=== PATIENT | female | born 1960 | race Caucasian/White ===

== ENCOUNTER 2017-04-22 13:19 | Emergency (ER) | payer OTHER ==
[2017-04-22 13:29] VITALS: BP 136/75; PULSE 71; TEMP 98; BMI 24.9
--- NOTE | 2017-04-22 14:27 | PDOC ---
History of Present Illness - General Chief Complaint: Injury Stated Complaint: PCP SENT Time Seen by Provider: 04/22/17 13:34 - History of Present Illness Initial Comments: 04/22/17 14:19 CHIEF COMPLAINT: ankle pain HISTORY OF PRESENT ILLNESS: 56 yo F sent to fast track by PCP for right ankle pain. Patient reports that she slipped and fell on a wet surface yesterday and with inversion of her ankle. No recent travel or sick contacts. PAST MEDICAL HISTORY: Denies past medical history FAMILY HISTORY: Denies SOCIAL HISTORY:Denies tobacco, alcohol, illicit drug use. SURGICAL HISTORY: Denies ALLERGIES: No known drug allergies REVIEW OF SYSTEMS General/Constitutional: Denies fever or chills. Denies weakness, weight change. HEENT: Denies change in vision. Denies ear pain or discharge. Denies sore throat. Cardiovascular: Denies chest pain or shortness of breath. Respiratory: Denies cough, wheezing, or hemoptysis. Gastrointestinal: Denies nausea, vomiting, diarrhea or constipation. Denies rectal bleeding. Genitourinary: Denies dysuria, frequency, or change in urination. Musculoskeletal: Pain to R ankle. Denies joint or muscle swelling or pain. Denies neck or back pain. Skin and breasts: Denies rash or easy bruising. Neurologic: Denies headache, vertigo, loss of consciousness, or loss of sensation. PHYSICAL EXAM General Appearance: Well-appearing, appropriately dressed. No apparent distress , no intoxication. HEENT: EOMI, PERRLA, normal ENT inspection, normal voice, TMs normal, pharynx normal. No conjunctival pallor. No photophobia, scleral icterus. Neck: Supple. Trachea midline. No tenderness, rigidity, carotid bruit, stridor , lymphadenopathy, or thyromegaly. Respiratory/Chest: Lungs CTAB. No shortness of breath, chest tenderness, respiratory distress, accessory muscle use. No crackles, rales, rhonchi, stridor , wheezing, dullness Cardiovascular: RRR. S1, S2. No JVD, murmur, bradycardia, tachycardia. Vascular Pulses: Dorsalis-Pedis (R): 2+, Dorsalis-Pedis (L): 2+ Gastrointestinal/Abdominal: Normal bowel sounds. Abdomen soft, non-distended. No tenderness or rebound tenderness. No organomegaly, pulsatile mass, guarding , hernia, hepatomegaly, splenomegaly. Lymphatic: No adenopathy, tenderness. Musculoskeletal/Extremities: Swelling and ecchymosis to R lateral malleolus. Normal inspection. FROM of all extremities, normal capillary refill. Pelvis Stable. No CVA tenderness. No tenderness to extremities, pedal edema, swelling , erythema or deformity. Integumentary: Appropriate color, dry, warm. 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 Fully oriented, alert. Appropriate mood/affect. Motor strength 5/5. No appreciable EOM palsy, facial droop or sensory deficit. Past History - Past Medical History Allergies/Adverse Reactions: Allergies Allergy/AdvReac Type Severity Reaction Status Date / Time No Known Allergies Allergy Verified 04/22/17 13:26 Home Medications: Ambulatory Orders Naproxen [Naprosyn -] 250 mg PO BID #14 tablet 04/22/17 Oxycodone HCl/Acetaminophen [Percocet 5-325 mg Tablet] 1 tab PO Q6H PRN #16 tablet MDD 4 04/22/17 Seizures: Yes (EPILEPSY) - Psycho/Social/Smoking Cessation Hx Suicidal Ideation: No Smoking History: Former smoker Have you smoked in the past 12 months: No Number of Cigarettes Smoked Daily: 1 Information on smoking cessation initiated: No *Physical Exam - Vital Signs Last Vital Signs Temp Pulse Resp BP Pulse Ox 98 F 71 17 136/75 95 04/22/17 13:26 04/22/17 13:26 04/22/17 13:26 04/22/17 13:26 04/22/17 13:26 ED Treatment Course - RADIOLOGY Radiology Studies Ordered: Category Date Time Status ANKLE & FOOT-RIGHT* [RAD] Stat Radiology 04/22/17 13:56 Taken Medical Decision Making - Medical Decision Making 04/22/17 14:27 56 yo F sent to fast track by PCP for right ankle pain. Patient reports receiving "a pain medicine injection" at PCP's office. -R ankle x-ray 04/22/17 14:39 X-ray positive for fracture of distal fibula. -Posterior splint applied. -Percocet *DC/Admit/Observation/Transfer Diagnosis at time of Disposition: Ankle fracture Qualifiers: Encounter type: initial encounter Fracture type: closed Laterality: right Qualified Code(s): S82.891A - Other fracture of right lower leg, initial encounter for closed fracture - Discharge Dispostion Disposition: HOME Condition at time of disposition: Stable Admit: No - Prescriptions Prescriptions: Naproxen [Naprosyn -] 250 mg PO BID #14 tablet Oxycodone HCl/Acetaminophen [Percocet 5-325 mg Tablet] 1 tab PO Q6H PRN #16 tablet MDD 4 PRN Reason: Pain - Referrals Referrals: Eloy Cantrell MD [Staff Physician] - - Patient Instructions Printed Discharge Instructions: DI for Ankle Fracture Additional Instructions: Please take medications as prescribed. Do not drive or operate machinery while taking this medication. Follow up with orthopedics within the next 2-3 days as discussed. If you experience any numbness, tingling, loss of sensation, swelling , or decreased temperature to your foot, please return to the ER immediately. Por favor, kye los medicamentos segn lo prescrito. No maneje mientras tomando Percocet. Seguimiento con ortopedia dentro de los prximos 2-3 saba jessica se discutio. Si experimenta cualquier entumecimiento, hormigueo, prdida de sensibilidad, hinchazn o disminucin de la temperatura en duenas pie, por favor regrese inmediatamente a la maykel de emergencias. Print Language: HEBREW
== END 2017-04-22 15:02 | disposition home or self-care (01) ==
LOC: JERFT 13:19
PROC: 2W3LX1Z Immobilization of Right Lower Extremity using Splint (ICD-10-PCS; principal; 2017-04-22)
DX: S82.891A Other fracture of right lower leg, initial encounter for closed fracture (principal); W01.0XXA Fall on same level from slipping, tripping and stumbling without subsequent striking against object, initial encounter; Y93.89 Activity, other specified; Y92.89 Other specified places as the place of occurrence of the external cause; Z86.69 Personal history of other diseases of the nervous system and sense organs
CPT/HCPCS: 29515; 73610-TC-RT; 73630-TC-RT; 99281-25

== ENCOUNTER 2019-05-27 21:23 | Emergency (ER) | payer OTHER ==
[2019-05-27 21:42] VITALS: TEMP 97.7; BMI 24.0
--- NOTE | 2019-05-27 22:17 | PDOC ---
History of Present Illness - General Chief Complaint: HIV Testing Stated Complaint: STD TESTING Time Seen by Provider: 05/27/19 21:55 History Source: Patient - History of Present Illness Associated Symptoms: denies: fever/chills Past History - Past Medical History Allergies/Adverse Reactions: Allergies Allergy/AdvReac Type Severity Reaction Status Date / Time No Known Allergies Allergy Verified 05/27/19 21:37 Home Medications: Ambulatory Orders Naproxen [Naprosyn -] 250 mg PO BID #14 tablet 04/22/17 Hydrocodone/Acetaminophen [Sinclair 5-325 Tablet] 1 each PO Q6H PRN #16 tablet MDD 4 04/23/17 Hydrocodone/Acetaminophen [Vicodin 5-300 mg Tablet] 1 each PO Q6H PRN #16 tablet MDD 4 04/23/17 Anemia: No COPD: No Seizures: Yes (EPILEPSY) - Immunization History Immunization Up to Date: No - Suicide/Smoking/Psychosocial Hx Smoking History: Never smoked Have you smoked in the past 12 months: No Number of Cigarettes Smoked Daily: 1 Hx Alcohol Use: No Drug/Substance Use Hx: No Review of Systems - Review of Systems Constitutional: No: Chills, Fever, Malaise *Physical Exam - Vital Signs Last Vital Signs Temp Pulse Resp BP Pulse Ox 97.7 F 62 16 130/72 98 05/27/19 21:38 05/27/19 21:38 05/27/19 21:38 05/27/19 21:38 05/27/19 21:38 - Physical Exam General Appearance: Yes: Appropriately Dressed. No: Apparent Distress HEENT: positive: Normal Voice Neck: positive: Supple Respiratory/Chest: negative: Respiratory Distress Integumentary: positive: Dry, Warm Neurologic: positive: Fully Oriented, Alert, Normal Mood/Affect Medical Decision Making - Medical Decision Making 05/27/19 21:58 59 yo F, no sig hx, here with boyfriend, both req HIV test before they . States thay have not been intimate as of yet. Has never had HIV test before 05/27/19 23:47 Pt does not want to wait for results, states will return tomorrow for results *DC/Admit/Observation/Transfer Diagnosis at time of Disposition: Encounter for human immunodeficiency virus test - Discharge Dispostion Disposition: HOME Condition at time of disposition: Good - Referrals - Patient Instructions Additional Instructions: You decided to leave prior to HIV results Please return to ER tomorrow for results - Post Discharge Activity
[2019-05-28 01:33] VITALS: BP 135/76; PULSE 67
== END 2019-05-27 23:50 | disposition home or self-care (01) ==
LOC: JER 21:23
DX: Z11.4 Encounter for screening for human immunodeficiency virus [HIV] (principal)
CPT/HCPCS: 36415; 87389; 99282-25

== ENCOUNTER 2019-08-17 12:38 | Emergency (ER) | payer OTHER ==
--- NOTE | 2019-08-17 12:46 | PDOC ---
Rapid Medical Evaluation Medical Evaluation: Allergies Allergy/AdvReac Type Severity Reaction Status Date / Time No Known Allergies Allergy Verified 05/27/19 21:37 I have performed a brief in-person evaluation of this patient. The patient presents with a chief complaint of: c/o L ear pain x 2 weeks, c/o lightheadedness x 1 week; denies cp, abdominal pain, vomiting, diarrhea; hx of seizures (not on meds) Pertinent physical exam findings: In NAD, normal gait I have ordered the following: Labs, EKG The patient will proceed to the ED for further evaluation. 08/17/19 12:44
[2019-08-17 12:47] VITALS: TEMP 97.7; BMI 24.9
[2019-08-17] MEDS ORDERED: ACETAMINOPHEN 325 MG TABLET (FP) PO ONE (12:47)
[2019-08-17] MEDS ORDERED: ACETAMINOPHEN 325 MG TABLET (FP) ONE (13:51)
[2019-08-17 13:53] LABS: BASO % 0.9 % (0-2.0); EOS % 3.1 % (0-4.5); HEMATOCRIT 40.6 % (32.4-45.2); LYMPH % 30.5 % (8-40); MCH 29.3 pg (25.7-33.7); MCHC 34.4 g/dl (32.0-36.0); MEAN CELL VOLUME 85.1 fl (80-96); MEAN PLT VOLUME 7.2 fl (7.5-11.1); MONO % 10.9 % (3.8-10.2); NEUT % 54.6 % (42.8-82.8); PLATELET COUNT 285 K/MM3 (134-434); RBC 4.77 M/mm3 (3.60-5.2); RDW 13.2 % (11.6-15.6); WHITE BLOOD COUNT 7.9 K/mm3 (4.0-10.0)
--- NOTE | 2019-08-17 14:09 | PDOC ---
History of Present Illness - General Chief Complaint: Lightheaded Stated Complaint: EARACHE/DIZZINESS Time Seen by Provider: 08/17/19 12:44 - History of Present Illness Initial Comments: 08/17/19 14:23 HPI: 59 y/o M with no pmh presenting with 2-3 weeks of left ear pain and 1 week of progressive dizziness. She states she went to her PCP when the pain first started and was told she had a TM perforation but was not given any ear drops or abx meds. The pain is non radiating and feels like a sharp inner ear sensation. She states the pain is persistent and hasnt improved at all. Dizziness has been worsening over the past week. She feels unsteady when she walks but denies syncope or falls. She reports dizziness is worse when she stands up and walks and when she lays down and turns to the side. She also reports KRAMER, sore throat, rhinorrhea, and congestion. Sore throat has improved with honey and lemon concoction. Denies fever, chills, chest pain, SOB, abd pain , n/v. PMHx: as noted above ROS: as noted SHx: Denies tobacco use; no alcohol use; no rec drugs Allergies: NKDA ROS: GENERAL/CONSTITUTIONAL: No fever or chills. No weakness. HEAD, EYES, EARS, NOSE AND THROAT: No change in vision. +ear pain; no discharge. +sore throat. CARDIOVASCULAR: No chest pain or shortness of breath RESPIRATORY: No cough, wheezing, or hemoptysis. GASTROINTESTINAL: No nausea, vomiting, diarrhea or constipation. GENITOURINARY: No dysuria, frequency, or change in urination. MUSCULOSKELETAL: No joint or muscle swelling or pain. No neck or back pain. SKIN: No rash NEUROLOGIC: +headache, vertigo; no loss of consciousness, or change in strength/ sensation. ENDOCRINE: No increased thirst. No abnormal weight change HEMATOLOGIC/LYMPHATIC: No anemia, easy bleeding, or history of blood clots. ALLERGIC/IMMUNOLOGIC: No hives or skin allergy. PE: GENERAL: Awake, alert, and fully oriented, no acute distress HEAD: No signs of trauma, normocephalic, atraumatic EYES: EOMI, sclera anicteric, conjunctiva clear, mild horizontal nystagmus with lateral head rotation ENT: Auricles normal inspection, 2 small microperforations of left TM without injection or drainage, right TM intact and noninjected, hearing grossly normal, nares patent, oropharynx clear without exudates. Moist mucosa. No crepitus or ttp over TMJ. Mild left mastoid ttp but no overlying skin changes NECK: Normal ROM, no lymphadenopathy LUNGS: No increased work of breathing, symmetrical chest rise, clear to auscultation bilaterally, no wheezes, crackles or rhonchi HEART: Regular rate and rhythm, normal S1 and S2, no murmurs, peripheral pulses 2+ and equal bilaterally. ABDOMEN: Soft, nondistended, nontender, normoactive bowel sounds. No guarding, no rebound. No masses. No CVAT EXTREMITIES: Normal inspection, Normal range of motion, no edema. No clubbing or cyanosis. NEUROLOGICAL: Cranial nerves II through XII grossly intact. Normal speech, normal gait, no focal sensorimotor deficits. mild nystagmus on dixhallpike SKIN: Warm, Dry, normal turgor, no rashes or lesions noted Past History - Past Medical History Allergies/Adverse Reactions: Allergies Allergy/AdvReac Type Severity Reaction Status Date / Time No Known Allergies Allergy Verified 08/17/19 12:47 Home Medications: Ambulatory Orders Naproxen [Naprosyn -] 250 mg PO BID #14 tablet 04/22/17 Hydrocodone/Acetaminophen [[place] 5-325 Tablet] 1 each PO Q6H PRN #16 tablet MDD 4 04/23/17 Hydrocodone/Acetaminophen [Vicodin 5-300 mg Tablet] 1 each PO Q6H PRN #16 tablet MDD 4 04/23/17 Amoxicillin/Potassium Clav [Augmentin 875-125 Tablet] 1 each PO BID 7 Days #14 tablet 08/17/19 Meclizine HCl [Antivert -] 25 mg PO BID 7 Days #14 tablet 08/17/19 Anemia: No COPD: No Seizures: Yes (EPILEPSY) - Immunization History Immunization Up to Date: No - Psycho Social/Smoking Cessation Hx Smoking History: Never smoked Have you smoked in the past 12 months: No Number of Cigarettes Smoked Daily: 1 Hx Alcohol Use: No Drug/Substance Use Hx: No *Physical Exam - Vital Signs Last Vital Signs Temp Pulse Resp BP Pulse Ox 97.7 F 80 18 130/80 98 08/17/19 12:40 08/17/19 12:40 08/17/19 12:40 08/17/19 12:40 08/17/19 12:40 ED Treatment Course - LABORATORY CBC & Chemistry Diagram: 08/17/19 13:45 08/17/19 12:47 - ADDITIONAL ORDERS Additional order review: 08/17/19 13:45 RBC 4.77 MCV 85.1 MCHC 34.4 RDW 13.2 MPV 7.2 L Neutrophils % 54.6 Lymphocytes % 30.5 Monocytes % 10.9 H Eosinophils % 3.1 Basophils % 0.9 - Medications Given in the ED: ED Medications Discontinued Medications Generic Name Dose Route Start Last Admin Trade Name Arturo PRN Reason Stop Dose Admin Acetaminophen 975 mg 08/17/19 12:47 08/17/19 13:52 Tylenol - PO 08/17/19 12:48 975 mg ONCE ONE Administration Medical Decision Making - Medical Decision Making 08/17/19 15:14 59 y/o M with no pmh presenting with 2-3 weeks of left ear pain and 1 week of vertiginous symptoms. VSS, AF. PE notable for left TM perf without injection or purulence but with +nystagmus and mild left mastoid ttp. DDx include vestibular dysfunction 2/2 TM perf but will ruleout deeper infection/mastoiditis as well -labs -tylenol, meclizine, augmentin, ivf -ct head noncon and ct temporal bones with con 08/17/19 16:34 CT head and temporal bones negative will DC home with augmentin and meclizine scripts discussed with patient results and she understands information as well as return pcxns; she has no questions at this time is comfortable with DC Discharge - Discharge Information Problems reviewed: Yes Clinical Impression/Diagnosis: Tympanic membrane perforation Qualifiers: Laterality: left Qualified Code(s): H72.92 - Unspecified perforation of tympanic membrane, left ear Condition: Stable Disposition: HOME - Additional Discharge Information Prescriptions: Amoxicillin/Potassium Clav [Augmentin 875-125 Tablet] 1 each PO BID 7 Days #14 tablet Meclizine HCl [Antivert -] 25 mg PO BID 7 Days #14 tablet - Follow up/Referral Referrals: Felipa Omalley MD [Primary Care Provider] - Bear Kirkland MD [Staff Physician] - - Patient Discharge Instructions Patient Printed Discharge Instructions: DI for Tympanic Membrane Perforation- Adult Additional Instructions: Return to the ED if you are having new or worsening symptoms including fainting , inability to walk, severe headache. Please take Augmentin twice a day. You may also take meclizine twice a day as needed for dizziness You may take tylenol for pain control Please followup with Dr Jackson for ENT followup. His contact information is present in the packet Regrese al servicio de urgencias si tiene sntomas nuevos o que empeoran, incluidos desmayos, incapacidad para caminar, dolor de brown intenso. [place] Augmentin dos veces al da. Tambin puede jazmine meclizina dos veces al da segn sea necesario para mareos. Puede jazmine tylenol para controlar el dolor. Dago un seguimiento con el Dr. Jackson para el seguimiento de ENT. [place] informacin de contacto est presente en el paquete. Print Language: AUSTRALIAN - Post Discharge Activity
[2019-08-17 14:31] LABS: ALBUMIN 3.4 g/dl (3.4-5.0); ALK PHOS 121 U/L (45-117); ANION GAP 5 MMOL/L (8-16); BILIRUBIN,TOTAL 0.4 mg/dL (0.2-1); BLOOD UREA NITROGEN 12.4 mg/dL (7-18); CALCIUM 9.4 mg/dL (8.5-10.1); CHLORIDE 104 mmol/L (98-107); CO2 31 mmol/L (21-32); CREATININE 0.7 mg/dL (0.55-1.3); GLUCOSE,RANDOM 107 mg/dL (74-106); POTASSIUM 3.7 mmol/L (3.5-5.1); SGOT/AST 22 U/L (15-37); SGPT/ALT 32 U/L (13-61); SODIUM 141 mmol/L (136-145); TOT PROT 7.4 g/dl (6.4-8.2)
[2019-08-17] MEDS ORDERED: MECLIZINE HCL 25 MG TABLET (FP) PO ONE (14:34)
[2019-08-17] MEDS ORDERED: AMOX TR/POT CLAV 875MG/125MG TABLETS (FP) PO ONE (14:36)
[2019-08-17] MEDS ORDERED: SODIUM CHLORIDE 1,000 ML IV STA (14:36)
[2019-08-17] MEDS ORDERED: AMOX TR/POT CLAV 875MG/125MG TABLETS (FP) ONE (14:46)
[2019-08-17] MEDS ORDERED: MECLIZINE HCL 25 MG TABLET (FP) ONE (14:46)
[2019-08-17 14:52] LABS: PH,URINE 7.5 (5.0-8.0); URINE APPEARANCE Cloudy; URINE BILIRUBIN Negative (NEGATIVE); URINE COLOR Yellow; URINE GLUCOSE (UA) Negative (NEGATIVE); URINE KETONE Negative (NEGATIVE); URINE LEUK ESTERASE Trace (NEGATIVE); URINE NITRITE Negative (NEGATIVE); URINE PROTEIN Negative (NEGATIVE); URINE UROBILINOGEN 0.2 mg/dL (0.2-1.0)
[2019-08-17 14:57] LABS: EPI CELLS 0-5 /HPF (0-5/HPF); URINE BACTERIA FEW /hpf (NEGATIVE); URINE RBC 0-4 /hpf (0-4); URINE WBC 0-4 /hpf (0-5)
--- NOTE | 2019-08-17 15:33 | PDOC ---
Documentation entered by Praveen Jones SCRIBE, acting as scribe for Amaury Levi MD. Amaury Levi MD: This documentation has been prepared by the Karen davidson Xhesika, SCRIBE, under my direction and personally reviewed by me in its entirety. I confirm that the documentation accurately reflects all work, treatment, procedures, and medical decision making performed by me. Attending Attestation - Resident Resident Name: AlfredJacobo - ED Attending Attestation I have performed the following: I have examined & evaluated the patient, The case was reviewed & discussed with the resident, I agree w/resident's findings & plan, Exceptions are as noted - HPI HPI: 08/17/19 15:27 The patient is a 59 year old female with a PMH of who presents to the ED for 2- 3 weeks of L ear pain. The patient reports associated dizziness, worsened when standing up or walking. Pt notes she saw her PCP when her symptoms began and was told she had a TM perforation. Pt denies being placed on any abx. Patient denies shortness of breath, fever, chills, cough, nausea, vomiting, diarrhea and constipation. Allergies:, NKDA Social Hx: Denies current smoking, drinking, or other substance usage. - Physicial Exam PE: 08/17/19 15:28 Vitals: Triage Vital signs reviewed General Appearance: no acute distress, well nourished well developed, Head: Atraumatic, normocephalic Ears: +tenderness to palpation of left TM. +Tenderness with manipulation of the L pinna. Chest Wall: Nontender Cardiac: Regular rate and rhythm, no murmurs, no rubs, no gallops, Lungs: Clear to auscultation bilateral, good air movement bilaterally, Abdomen: Soft, nondistended, normal bowel sounds, nontender to palpation Extremities: Full range of motion to all extremities, no cyanosis, clubbing, or edema Skin: Warm and dry, no rashes or lesions, no petechiae Neuro: AOX3; Cranial Nerves 2-12 grossly c intact, Strength intact to all extremities, Sensation intact to all extremities, gait normal Psych: normal mood, normal affect - Medical Decision Making 08/17/19 16:40 Normal neurologic examination patient able to ambulate comfortably CT with no evidence of mastoiditis will cover for presumed otitis as well as meclizine for positional vertigo Findings, the need for follow-up and strict return instructions discussed with patient.
[2019-08-17 17:17] VITALS: BP 126/86; PULSE 74
--- NOTE | 2019-08-18 17:59 | EKG ---
Test Reason : Blood Pressure : / mmHG Vent. Rate : 058 BPM Atrial Rate : 625 BPM P-R Int : 000 ms QRS Dur : 078 ms QT Int : 432 ms P-R-T Axes : 000 -26 -30 degrees QTc Int : 424 ms SINUS BRADYCARDIA NONSPECIFIC T WAVE ABNORMALITY ABNORMAL ECG Confirmed by MD Crissy, Av ([id number]) on 08/18/2019 5:58:51 PM Referred By: Confirmed By:Av Woodward MD
== END 2019-08-17 17:17 | disposition home or self-care (01) ==
LOC: JER 12:38
PROC: 3E0337Z Introduction of Electrolytic and Water Balance Substance into Peripheral Vein, Percutaneous Approach (ICD-10-PCS; principal; 2019-08-17)
DX: H72.92 Unspecified perforation of tympanic membrane, left ear (principal); Z86.69 Personal history of other diseases of the nervous system and sense organs
CPT/HCPCS: 36415; 70450-TC; 70480-TC; 80053; 81003; 84484; 85025; 93005; 93010; 96360; 99283-25; J7030

== ENCOUNTER 2019-09-18 16:55 | Emergency (ER) | payer OTHER ==
--- NOTE | 2019-09-18 17:01 | PDOC ---
Rapid Medical Evaluation Medical Evaluation: Allergies Allergy/AdvReac Type Severity Reaction Status Date / Time No Known Allergies Allergy Verified 08/17/19 12:47 I have performed a brief in-person evaluation of this patient. The patient presents with a chief complaint of: C/O R upper eyelid pain and swelling from yesterday; denies trauma, vision changes Pertinent physical exam findings: +R upper eyelid mild swelling with some redness, no drainage from eyes I have ordered the following: Nothing The patient will proceed to the ED for further evaluation. 09/18/19 16:58
[2019-09-18 17:07] VITALS: BP 166/55; PULSE 68; TEMP 97.6; BMI 25.7
--- NOTE | 2019-09-18 17:09 | PDOC ---
History of Present Illness - General Chief Complaint: Eye Problem Stated Complaint: EYE PAIN Time Seen by Provider: 09/18/19 16:58 - History of Present Illness Initial Comments: 09/18/19 17:09 CHIEF COMPLAINT: left eye swelling HISTORY OF PRESENT ILLNESS: 59 yo F with no significant PMH [facility] with left eye swelling since yesterday. Patient states she has had this type of swelling before "after eating peanut butter." She denies itching to the eye but reports pain. She does remember getting a shake yesterday and isn't sure if it contained any peanut ingredients. Patient denies rash, difficulty breathing, swelling to lips, tongue, throat, mouth, or neck. No recent travel or sick contacts. PAST MEDICAL HISTORY: Denies past medical history FAMILY HISTORY: Denies SOCIAL HISTORY: Denies tobacco, alcohol, illicit drug use. SURGICAL HISTORY: Denies ALLERGIES: No known drug allergies REVIEW OF SYSTEMS General/Constitutional: Denies fever or chills. Denies weakness, weight change. HEENT: Swelling and pain to L eyelid. Denies change in vision. Denies ear pain or discharge. Denies sore throat. Cardiovascular: Denies chest pain or shortness of breath. Respiratory: Denies cough, wheezing, or hemoptysis. Gastrointestinal: Denies nausea, vomiting, diarrhea or constipation. Denies rectal bleeding. Genitourinary: Denies dysuria, frequency, or change in urination. Musculoskeletal: Denies joint or muscle swelling or pain. Denies neck or back pain. Skin and breasts: Denies rash or easy bruising. Neurologic: Denies headache, vertigo, loss of consciousness, or loss of sensation. Psychiatric: Denies depression or anxiety. PHYSICAL EXAM General Appearance: Well-appearing, appropriately dressed. No apparent distress , no intoxication. HEENT: Mild swelling to anterior left eyelid. No entrapment, no proptosis. EOMI, PERRLA, normal ENT inspection, normal voice, TMs normal, pharynx normal. No conjunctival pallor. No photophobia, scleral icterus. Neck: Supple. Trachea midline. No tenderness, rigidity, carotid bruit, stridor , lymphadenopathy, or thyromegaly. Respiratory/Chest: Lungs CTAB. No shortness of breath, chest tenderness, respiratory distress, accessory muscle use. No crackles, rales, rhonchi, stridor , wheezing, dullness Cardiovascular: RRR. S1, S2. No JVD, murmur, bradycardia, tachycardia. Vascular Pulses: Dorsalis-Pedis (R): 2+, Dorsalis-Pedis (L): 2+ Gastrointestinal/Abdominal: Normal bowel sounds. Abdomen soft, non-distended. No tenderness or rebound tenderness. No organomegaly, pulsatile mass, guarding , hernia, hepatomegaly, splenomegaly. Lymphatic: No adenopathy, tenderness. Musculoskeletal/Extremities: Normal inspection. FROM of all extremities, normal capillary refill. Pelvis Stable. No CVA tenderness. No tenderness to extremities, pedal edema, swelling, erythema or deformity. Integumentary: Appropriate color, dry, warm. 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 Fully oriented, alert. Appropriate mood/affect. Motor strength 5/5. No appreciable EOM palsy, facial droop or sensory deficit. 1 Past History - Past Medical History Allergies/Adverse Reactions: Allergies Allergy/AdvReac Type Severity Reaction Status Date / Time No Known Allergies Allergy Verified 09/18/19 17:02 Home Medications: Ambulatory Orders Naproxen [Naprosyn -] 250 mg PO BID #14 tablet 04/22/17 Hydrocodone/Acetaminophen [[place] 5-325 Tablet] 1 each PO Q6H PRN #16 tablet MDD 4 04/23/17 Hydrocodone/Acetaminophen [Vicodin 5-300 mg Tablet] 1 each PO Q6H PRN #16 tablet MDD 4 04/23/17 Amoxicillin/Potassium Clav [Augmentin 875-125 Tablet] 1 each PO BID 7 Days #14 tablet 08/17/19 Meclizine HCl [Antivert -] 25 mg PO BID 7 Days #14 tablet 08/17/19 Sulfamethoxazole/Trimethoprim [Bactrim Ds -] 1 tab PO BID #14 tablet 09/18/19 Sulfamethoxazole/Trimethoprim [Bactrim Ds Tablet] 1 each PO BID #14 tablet 09/18 Anemia: No COPD: No Seizures: Yes (EPILEPSY) - Immunization History Immunization Up to Date: No - Psycho Social/Smoking Cessation Hx Smoking History: Never smoked Have you smoked in the past 12 months: No Number of Cigarettes Smoked Daily: 1 Hx Alcohol Use: No Drug/Substance Use Hx: No *Physical Exam - Vital Signs Last Vital Signs Temp Pulse Resp BP Pulse Ox 97.6 F 68 18 166/55 L 97 09/18/19 16:57 09/18/19 16:57 09/18/19 16:57 09/18/19 16:57 09/18/19 16:57 Medical Decision Making - Medical Decision Making 09/18/19 17:28 59 yo F with no significant PMH [facility] with left eye swelling since yesterday. Clinical presentation consistent with preseptal cellulitis. Will treat with Bactrim. Advised patient to take medication as prescribed and follow up with ophtho if symptoms persist. Advised patient of signs and symptoms for return to ED. Patient verbalized understanding and agrees to plan. Discharge - Discharge Information Problems reviewed: Yes Clinical Impression/Diagnosis: Preseptal cellulitis of left eye Condition: Stable Disposition: HOME - Admission No - Additional Discharge Information Prescriptions: Sulfamethoxazole/Trimethoprim [Bactrim Ds Tablet] 1 each PO BID #14 tablet - Follow up/Referral Referrals: Thomas Torres MD [Primary Care Provider] - Kenneth Hercules MD [Staff Physician] - - Patient Discharge Instructions Patient Printed Discharge Instructions: DI for Blepharitis Additional Instructions: Please take medications as prescribed. Follow-up with ophthalmology if symptoms persist past 5 days. If you develop any new or worsening symptoms please return to the ER. - Post Discharge Activity
[2019-09-18] MEDS ORDERED: FLUORESCEIN NA 1 EA STRIP ONE (17:21)
[2019-09-18] MEDS ORDERED: TETRACAINE 0.5% OPHTH SOLN 2 ML BOTTLE ONE (17:21)
== END 2019-09-18 17:42 | disposition home or self-care (01) ==
LOC: JERFT 16:55 → JER 16:55 → JERFT 17:42
DX: L03.213 Periorbital cellulitis (principal)
CPT/HCPCS: 99281-25

== ENCOUNTER 2019-09-20 10:30 | Emergency (ER) | payer OTHER ==
[2019-09-20 11:00] VITALS: BP 146/76; PULSE 65; TEMP 98; BMI 25.7
--- NOTE | 2019-09-20 11:41 | PDOC ---
History of Present Illness - General Chief Complaint: Eye Problem Stated Complaint: INFLAMMATION IN LT.EYE Time Seen by Provider: 09/20/19 11:08 History Source: Patient Exam Limitations: No Limitations - History of Present Illness Initial Comments: 09/20/19 11:27 CHIEF COMPLAINT: left eye swelling Ms. Bowman is a 59 yo F with no significant PMH who [facility] with left eye swelling Pt was seen in the ER two days ago after having eye lid swelling She was started on Bactrim which she has taken since leaving the ER She returns to the ER with a complaint of increased eyelid swelling No fevers or chills No eye pain, no eye pain with eye movement No headache No vision changes PAST MEDICAL HISTORY: Denies past medical history SOCIAL HISTORY: Denies tobacco, alcohol, illicit drug use. SURGICAL HISTORY: Denies ALLERGIES: No known drug allergies REVIEW OF SYSTEMS General/Constitutional: Denies fever or chills. HEENT: Swelling and pain to L eyelid. Denies change in vision. Cardiovascular: Denies chest pain or shortness of breath. Respiratory: Denies cough, wheezing, or hemoptysis. Gastrointestinal: Denies nausea, vomiting, diarrhea or constipation. Genitourinary: Denies dysuria, frequency, or change in urination. Musculoskeletal: Denies joint or muscle swelling or pain. Denies neck or back pain. Skin: Eyelid erythema Neurologic: Denies headache, vertigo, loss of consciousness, or loss of sensation. PHYSICAL EXAM General Appearance: Well-appearing, appropriately dressed. No apparent distress HEENT: Swelling to anterior left eyelid, medial eyelid area with area of swelling measuring 8mm, (+) purulence noted. EOMI, PERRL, No scleral injection , no pain with eye motion, no blurry vision NO Swelling noted on face or infraorbital region Neck: Supple. Trachea midline. Respiratory/Chest: Lungs CTAB. No shortness of breath Cardiovascular: RRR. S1, S2. Gastrointestinal/Abdominal: Abdomen soft, non-distended. No tenderness. Musculoskeletal/Extremities: Normal inspection. FROM of all extremities, normal capillary refill. 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 Fully oriented, alert. Appropriate mood/affect. Motor strength 5/5. No appreciable EOM palsy, facial droop or sensory deficit. 09/20/19 11:53 09/20/19 12:05 Is this a multiple visit Asthma Patient?: No Past History - Past Medical History Allergies/Adverse Reactions: Allergies Allergy/AdvReac Type Severity Reaction Status Date / Time No Known Allergies Allergy Verified 09/20/19 10:53 Home Medications: Ambulatory Orders Naproxen [Naprosyn -] 250 mg PO BID #14 tablet 04/22/17 Hydrocodone/Acetaminophen [[place] 5-325 Tablet] 1 each PO Q6H PRN #16 tablet MDD 4 04/23/17 Hydrocodone/Acetaminophen [Vicodin 5-300 mg Tablet] 1 each PO Q6H PRN #16 tablet MDD 4 04/23/17 Amoxicillin/Potassium Clav [Augmentin 875-125 Tablet] 1 each PO BID 7 Days #14 tablet 08/17/19 Meclizine HCl [Antivert -] 25 mg PO BID 7 Days #14 tablet 08/17/19 Sulfamethoxazole/Trimethoprim [Bactrim Ds -] 1 tab PO BID #14 tablet 09/18/19 Sulfamethoxazole/Trimethoprim [Bactrim Ds Tablet] 1 each PO BID #14 tablet 09/18 Anemia: No COPD: No Seizures: Yes (EPILEPSY) - Immunization History Immunization Up to Date: No - Psycho Social/Smoking Cessation Hx Smoking History: Never smoked Have you smoked in the past 12 months: No Number of Cigarettes Smoked Daily: 1 Information on smoking cessation initiated: No Hx Alcohol Use: No Drug/Substance Use Hx: No *Physical Exam - Vital Signs Last Vital Signs Temp Pulse Resp BP Pulse Ox 98.0 F 65 17 146/76 98 09/20/19 10:54 09/20/19 10:54 09/20/19 10:54 09/20/19 10:54 09/20/19 10:54 Medical Decision Making - Medical Decision Making 09/20/19 12:04 59 yo F presenting to the ER with left eyelid swelling, erythema, medial area with drainage No systemic signs of illness Seems to be a Hordeolum which has not sufficiently drained vs. early pre septal cellulitis Will Call Ophthalmology for recommendations Call placed to Dr Saenz Awaiting call back I have updated this patient re: calling the tax advisor for further recommendations and possibly an office visit now 09/20/19 12:07 Pt has eloped from the ER Discharge - Discharge Information Problems reviewed: Yes Clinical Impression/Diagnosis: Hordeolum externum left upper eyelid, Preseptal cellulitis of left eye Condition: Fair Disposition: ELOPED - Admission No - Follow up/Referral - Patient Discharge Instructions - Post Discharge Activity
== END 2019-09-20 12:02 | disposition left against medical advice (07) ==
LOC: JER 10:30
DX: L03.213 Periorbital cellulitis (principal); H00.014 Hordeolum externum left upper eyelid
CPT/HCPCS: 99281-25

== ENCOUNTER 2021-04-02 12:02 | Emergency (ER) | payer OTHER ==
[2021-04-02 12:08] VITALS: BP 140/75; PULSE 75; TEMP 97.9; BMI 25.5
[2021-04-02] MEDS ORDERED: KETOROLAC TROMETHAMINE 30 MG/1 ML VIAL IM ONE (13:18)
[2021-04-02] MEDS ORDERED: KETOROLAC TROMETHAMINE 30 MG/1 ML VIAL ONE (13:19)
== END 2021-04-02 13:25 | disposition home or self-care (01) ==
LOC: JERFT 12:02
PROC: 3E0233Z Introduction of Anti-inflammatory into Muscle, Percutaneous Approach (ICD-10-PCS; principal; 2021-04-02)
DX: M54.5 Low back pain (principal)
CPT/HCPCS: 99283-25

== ENCOUNTER 2021-12-16 19:58 | Observation (INO) | payer OTHER ==
[2021-12-16] MEDS ORDERED: ACETAMINOPHEN 1000 MG/100 ML BAG IVPB ONE (21:18)
[2021-12-16] MEDS ORDERED: SODIUM CHLORIDE 1,000 ML IV SCH (21:30)
[2021-12-16] MEDS ORDERED: ACETAMINOPHEN INJECTION 100 ML IVPB ONE (22:10)
[2021-12-16] MEDS ORDERED: METOCLOPRAMIDE HCL INJECTION 10 MG/2 ML VIAL IVPB ONE (22:22)
[2021-12-16 22:28] LABS: BASO % 0.5 % (0-2.0); HEMATOCRIT 39.4 % (32.4-45.2); HEMOGLOBIN 13.5 GM/dL (10.7-15.3); LYMPH % 23.8 % (8-40); MCH 28.6 pg (25.7-33.7); MCHC 34.2 g/dl (32.0-36.0); MEAN CELL VOLUME 83.6 fl (80-96); MEAN PLT VOLUME 6.8 fl (7.5-11.1); MONO % 7.2 % (3.8-10.2); NEUT % 67.5 % (42.8-82.8); PLATELET COUNT 309 10^3/uL (134-434); RBC 4.71 M/mm3 (3.60-5.2); RDW 14.8 % (11.6-15.6); WHITE BLOOD COUNT 9.8 K/mm3 (4.0-10.0)
[2021-12-16 22:34] LABS: INR 1.05 (0.83-1.09); PROTHROMBIN TIME (PATIENT) 12.1 SEC (9.7-13.0)
[2021-12-16 22:37] LABS: ACTIVATED PTT 32.2 SECONDS (25.2-36.5)
[2021-12-16 22:49] LABS: ALBUMIN 3.6 g/dl (3.4-5.0); BLOOD UREA NITROGEN 16.4 mg/dL (7-18)
[2021-12-16 22:52] LABS: CREATININE 0.7 mg/dL (0.55-1.3)
[2021-12-16 22:53] LABS: BILIRUBIN,TOTAL 0.5 mg/dL (0.2-1); TOT PROT 7.1 g/dl (6.4-8.2)
[2021-12-16 23:10] LABS: PH,URINE 7.5 (5.0-8.0); URINE APPEARANCE CLEAR; URINE BILIRUBIN NEGATIVE (NEGATIVE); URINE COLOR YELLOW; URINE GLUCOSE (UA) NEGATIVE (NEGATIVE); URINE KETONE NEGATIVE (NEGATIVE); URINE LEUK ESTERASE NEGATIVE (NEGATIVE); URINE NITRITE NEGATIVE (NEGATIVE); URINE PROTEIN NEGATIVE (NEGATIVE); URINE UROBILINOGEN 0.2 mg/dL (0.2-1.0)
[2021-12-16] MEDS ORDERED: METOCLOPRAMIDE HCL INJECTION 10 MG/2 ML VIAL ONE (23:23)
[2021-12-17] MEDS ORDERED: POLYETHYLENE GLYCOL (HEALTHYLAX) 3350 17 GM PACKET PO PRN (00:29)
[2021-12-17] MEDS ORDERED: ACETAMINOPHEN 325 MG TABLET (FP) PO PRN (00:29)
[2021-12-17] MEDS ORDERED: MECLIZINE HCL 25 MG TABLET (FP) PO PRN (00:36)
[2021-12-17] MEDS ORDERED: ASPIRIN 81 MG CHEWABLE TABLETS PO ONE (00:41)
[2021-12-17] MEDS ORDERED: MIRTAZAPINE 15 MG TABLET (FP) PO SCH (00:46)
[2021-12-17] MEDS ORDERED: DOCUSATE SODIUM 100 MG CAPSULE (FP) PO SCH (00:48)
[2021-12-17] MEDS ORDERED: GABAPENTIN 300 MG CAPSULE PO SCH (00:49)
[2021-12-17] MEDS ORDERED: ASPIRIN 81 MG CHEWABLE TABLETS ONE (00:49)
[2021-12-17] MEDS ORDERED: MIRTAZAPINE 15 MG TABLET (FP) ONE (00:53)
[2021-12-17] MEDS ORDERED: GABAPENTIN 100 MG CAPSULE ONE (00:53)
[2021-12-17] MEDS ORDERED: DOCUSATE SODIUM 100 MG CAPSULE (FP) PO ONE (00:53)
[2021-12-17 05:42] VITALS: BMI 26.2
[2021-12-17 09:50] VITALS: PULSE 56
[2021-12-17 09:53] VITALS: BP 156/81; TEMP 97.3
[2021-12-17] MEDS ORDERED: ENOXAPARIN NA (PORCINE) 40 MG/0.4 ML DISP.SYRIN SQ SCH (10:00)
[2021-12-17] MEDS ORDERED: PANTOPRAZOLE 40 MG TABLET PO SCH (10:00)
[2021-12-17] MEDS ORDERED: ASPIRIN COATED 81 MG TABLET.EC PO SCH (10:00)
[2021-12-17] MEDS ORDERED: amLODIPine BESYLATE 5 MG TABLET (FP) PO SCH (10:15)
[2021-12-17] MEDS ORDERED: ATORVASTATIN CA 20 MG TABLET (FP) PO SCH (22:00)
[2021-12-17] MEDS ORDERED: hydrOXYzine PAMOATE 25 MG CAPSULE (FP) PO SCH (22:00)
== END 2021-12-17 14:00 | disposition home or self-care (01) ==
LOC: JER 19:58 → JERBED 23:41 → J4S 12-17 05:12
PROVIDERS: ADMIT Hospitalist; ATTEND Internal Medicine
PROC: 3E033NZ Introduction of Analgesics, Hypnotics, Sedatives into Peripheral Vein, Percutaneous Approach (ICD-10-PCS; principal; 2021-12-16)
PROC: 3E023GC Introduction of Other Therapeutic Substance into Muscle, Percutaneous Approach (ICD-10-PCS; 2021-12-16)
PROC: 3E033GC Introduction of Other Therapeutic Substance into Peripheral Vein, Percutaneous Approach (ICD-10-PCS; 2021-12-16)
PROC: 3E0337Z Introduction of Electrolytic and Water Balance Substance into Peripheral Vein, Percutaneous Approach (ICD-10-PCS; 2021-12-16)
DX: G43.909 Migraine, unspecified, not intractable, without status migrainosus (principal); K46.9 Unspecified abdominal hernia without obstruction or gangrene; R42 Dizziness and giddiness; I10 Essential (primary) hypertension; E78.5 Hyperlipidemia, unspecified; K59.00 Constipation, unspecified; R56.9 Unspecified convulsions; G89.29 Other chronic pain; M54.9 Dorsalgia, unspecified; Z87.19 Personal history of other diseases of the digestive system; Z86.69 Personal history of other diseases of the nervous system and sense organs; R29.818 Other symptoms and signs involving the nervous system
CPT/HCPCS: 36415; 70450-TC; 70496-TC; 70498-TC; 80053; 80061; 81003; 83036; 84484; 85025; 85610; 85730; 93005; 93010; 96361; 96372; 96374; 96375; 97116-GP; 97161-GP; 99285-25; C9803-CS; G0378; U0003; U0005

== ENCOUNTER 2022-01-14 19:33 | Emergency (ER) | payer OTHER ==
[2022-01-14 19:44] VITALS: TEMP 97; BMI 25.7
[2022-01-14] MEDS ORDERED: SODIUM CHLORIDE 0.9% 500 ML INFUS.BAG IV ONE (20:10)
[2022-01-14] MEDS ORDERED: MECLIZINE HCL 25 MG TABLET (FP) PO ONE (20:10)
[2022-01-14] MEDS ORDERED: MECLIZINE HCL 25 MG TABLET (FP) ONE (20:37)
[2022-01-14 20:40] LABS: BASO % 0.4 % (0-2.0); EOS % 1.6 % (0-4.5); HEMATOCRIT 40.8 % (32.4-45.2); HEMOGLOBIN 13.7 GM/dL (10.7-15.3); LYMPH % 21.4 % (8-40); MCH 28.4 pg (25.7-33.7); MCHC 33.7 g/dl (32.0-36.0); MEAN CELL VOLUME 84.2 fl (80-96); MEAN PLT VOLUME 6.6 fl (7.5-11.1); MONO % 10.1 % (3.8-10.2); NEUT % 66.5 % (42.8-82.8); PLATELET COUNT 352 10^3/uL (134-434); RBC 4.85 M/mm3 (3.60-5.2); RDW 13.8 % (11.6-15.6); WHITE BLOOD COUNT 8.5 K/mm3 (4.0-10.0)
[2022-01-14] MEDS ORDERED: FAMOTIDINE 20 MG/50 ML IVPB 20 MG/50 ML MG IVPB ONE (20:48)
[2022-01-14] MEDS ORDERED: FAMOTIDINE 10 MG/ML VIAL IVPB ONE (20:51)
[2022-01-14 21:00] LABS: EPI CELLS 12 /uL (0-25.1); HYALINE CASTS 1 /uL (0-3.1); URINE APPEARANCE CLEAR; URINE BACTERIA 22 /uL (0-1359); URINE BILIRUBIN NEGATIVE (NEGATIVE); URINE COLOR YELLOW; URINE GLUCOSE (UA) NEGATIVE (NEGATIVE); URINE KETONE NEGATIVE (NEGATIVE); URINE LEUK ESTERASE TRACE (NEGATIVE); URINE NITRITE NEGATIVE (NEGATIVE); URINE PROTEIN NEGATIVE (NEGATIVE); URINE RBC 2 /uL (0-23.9); URINE UROBILINOGEN 0.2 mg/dL (0.2-1.0); URINE WBC 9 /uL (0-25.8)
[2022-01-14 21:12] LABS: ALBUMIN 3.8 g/dl (3.4-5.0); CALCIUM 9.4 mg/dL (8.5-10.1)
[2022-01-14 21:16] LABS: CREATININE 0.8 mg/dL (0.55-1.3)
[2022-01-14 21:17] LABS: BILIRUBIN,TOTAL 0.2 mg/dL (0.2-1); TOT PROT 7.7 g/dl (6.4-8.2)
[2022-01-14 22:54] VITALS: BP 131/68; PULSE 61
== END 2022-01-14 23:11 | disposition home or self-care (01) ==
LOC: JER 19:33
PROC: 3E033GC Introduction of Other Therapeutic Substance into Peripheral Vein, Percutaneous Approach (ICD-10-PCS; principal; 2022-01-14)
DX: R42 Dizziness and giddiness (principal)
CPT/HCPCS: 36415; 80053; 81003; 84484; 85025; 87086; 93005; 93010; 99284-25

== ENCOUNTER 2022-05-18 13:47 | Emergency (ER) | payer OTHER ==
[2022-05-18 13:55] VITALS: RESP 18; TEMP 98.6; BMI 24.9
[2022-05-18] MEDS ORDERED: METOCLOPRAMIDE HCL INJECTION 10 MG/2 ML VIAL IVPUSH ONE (14:49)
[2022-05-18] MEDS ORDERED: MECLIZINE HCL 25 MG TABLET (FP) PO ONE (14:49)
[2022-05-18] MEDS ORDERED: ACETAMINOPHEN 1000 MG/100 ML BAG IVPB ONE (14:49)
[2022-05-18] MEDS ORDERED: MECLIZINE HCL 25 MG TABLET (FP) ONE (14:57)
[2022-05-18] MEDS ORDERED: METOCLOPRAMIDE HCL INJECTION 10 MG/2 ML VIAL ONE (14:58)
[2022-05-18] MEDS ORDERED: ACETAMINOPHEN INJECTION 100 ML IVPB ONE (14:58)
[2022-05-18 16:38] LABS: BASO % 0.6 % (0-2.0); EOS % 1.4 % (0-4.5); HEMATOCRIT 41.8 % (32.4-45.2); HEMOGLOBIN 14.4 GM/dL (10.7-15.3); LYMPH % 24.1 % (8-40); MCH 28.1 pg (25.7-33.7); MCHC 34.4 g/dl (32.0-36.0); MEAN CELL VOLUME 81.8 fl (80-96); MEAN PLT VOLUME 6.9 fl (7.5-11.1); MONO % 8.7 % (3.8-10.2); NEUT % 65.2 % (42.8-82.8); PLATELET COUNT 294 10^3/uL (134-434); RBC 5.11 M/mm3 (3.60-5.2); RDW 13.4 % (11.6-15.6); WHITE BLOOD COUNT 8.2 K/mm3 (4.0-10.0)
[2022-05-18 17:13] LABS: ALBUMIN 3.7 g/dl (3.4-5.0); BLOOD UREA NITROGEN 11.6 mg/dL (7-18); CALCIUM 9.5 mg/dL (8.5-10.1)
[2022-05-18 17:16] LABS: CREATININE 0.7 mg/dL (0.55-1.3)
[2022-05-18 17:18] LABS: BILIRUBIN,TOTAL 0.4 mg/dL (0.2-1); TOT PROT 7.8 g/dl (6.4-8.2)
[2022-05-18 17:58] VITALS: BP 114/77; PULSE 79
== END 2022-05-18 17:58 | disposition home or self-care (01) ==
LOC: JER 13:47
PROC: 3E0333Z Introduction of Anti-inflammatory into Peripheral Vein, Percutaneous Approach (ICD-10-PCS; principal; 2022-05-18)
PROC: 3E033GC Introduction of Other Therapeutic Substance into Peripheral Vein, Percutaneous Approach (ICD-10-PCS; 2022-05-18)
DX: G43.111 Migraine with aura, intractable, with status migrainosus (principal)
CPT/HCPCS: 36415; 70450-TC; 80053; 85025; 99284-25

== ENCOUNTER 2024-03-31 14:41 | Emergency (ER) | payer OTHER, MEDICARE ==
[2024-03-31 15:03] VITALS: TEMP 98; BMI 25.7
[2024-03-31 15:58] LABS: EPI CELLS 9 /uL (0-25.1); HYALINE CASTS 1 /uL (0-3.1); URINE APPEARANCE TURBID; URINE BACTERIA >9,000 /uL (0-1359); URINE BILIRUBIN NEGATIVE (NEGATIVE); URINE COLOR YELLOW; URINE GLUCOSE (UA) NEGATIVE (NEGATIVE); URINE KETONE NEGATIVE (NEGATIVE); URINE LEUK ESTERASE 3+ (NEGATIVE); URINE NITRITE POSITIVE (NEGATIVE); URINE PROTEIN 1+ (NEGATIVE); URINE RBC 227 /uL (0-23.9); URINE WBC 14777 /uL (0-25.8)
[2024-03-31] MEDS ORDERED: IBUPROFEN 600 MG TABLET (FP) PO ONE (16:18)
[2024-03-31] MEDS ORDERED: ACETAMINOPHEN 500 MG TABLET (FP) ONE (16:18)
[2024-03-31] MEDS: IBUPROFEN 600 MG TABLET (FP) PO ONE (16:22)
[2024-03-31] MEDS: ACETAMINOPHEN 500 MG TABLET (FP) PO ONE (16:22)
[2024-03-31] MEDS: CIPROFLOXACIN 500 MG TABLET (RESTRICTED TO ID) PO ONE (16:22)
[2024-03-31] MEDS ORDERED: SULFAMETHOXAZOLE/TRIMETHOPRIM 800MG/160MG D.S. TABLET ONE (16:52)
[2024-03-31] MEDS: SULFAMETHOXAZOLE/TRIMETHOPRIM 800MG/160MG D.S. TABLET PO ONE (17:02)
[2024-03-31 17:03] VITALS: BP 122/60; PULSE 97; RESP 17
== END 2024-03-31 17:48 | disposition home or self-care (01) ==
LOC: JERFT 14:41
DX: N12 Tubulo-interstitial nephritis, not specified as acute or chronic (principal); R30.0 Dysuria; M54.50 Low back pain, unspecified; R51.9 Headache, unspecified; R10.30 Lower abdominal pain, unspecified; J02.9 Acute pharyngitis, unspecified
CPT/HCPCS: 81003; 87086; 87186; 87651; 99283-25

== ENCOUNTER 2024-04-03 19:35 | Emergency (ER) | payer MEDICARE, OTHER ==
[2024-04-03 19:57] VITALS: BP 117/75; PULSE 89; RESP 18; TEMP 98.4; BMI 26.5
[2024-04-03] MEDS ORDERED: ACETAMINOPHEN INJECTION 100 ML IVPB ONE (21:33)
[2024-04-03] MEDS ORDERED: MAG HYDROX/AL HYDROX/SIMETH 30 ML UNIT-DOSE CUP ONE (21:33)
[2024-04-03] MEDS ORDERED: FAMOTIDINE 20 MG/50 ML IVPB 20 MG/50 ML MG IVPB ONE (21:33)
[2024-04-03] MEDS: MAG HYDROX/AL HYDROX/SIMETH 30 ML UNIT-DOSE CUP PO ONE (21:50)
[2024-04-03] MEDS: ACETAMINOPHEN 1000 MG/100 ML BAG IVPB ONE (21:50)
[2024-04-03] MEDS: FAMOTIDINE 20 MG/50 ML IVPB 20 MG/50 ML MG IVPB ONE (21:50)
[2024-04-03 22:05] LABS: BASO % 0.5 % (0-2.0); EOS % 1.9 % (0-4.5); HEMATOCRIT 33.5 % (32.4-45.2); HEMOGLOBIN 11.4 GM/dL (10.7-15.3); LYMPH % 19.3 % (8-40); MCH 27.9 pg (25.7-33.7); MCHC 34.1 g/dl (32.0-36.0); MEAN CELL VOLUME 81.9 fl (80-96); MEAN PLT VOLUME 6.3 fl (7.5-11.1); NEUT % 64.3 % (42.8-82.8); PLATELET COUNT 393 10^3/uL (134-434); RBC 4.08 M/mm3 (3.60-5.2); WHITE BLOOD COUNT 8.6 K/mm3 (4.0-10.0)
[2024-04-03 22:14] LABS: POTASSIUM 4.1 mmol/L (3.5-5.1)
[2024-04-03 22:15] LABS: ALBUMIN 3.3 g/dl (3.4-5.0)
[2024-04-03 22:20] LABS: BILIRUBIN,TOTAL 0.4 mg/dL (0.2-1); TOT PROT 8.1 g/dl (6.4-8.2)
== END 2024-04-04 00:03 | disposition home or self-care (01) ==
LOC: JER 19:35
PROC: 3E033GC Introduction of Other Therapeutic Substance into Peripheral Vein, Percutaneous Approach (ICD-10-PCS; principal; 2024-04-03)
PROC: 3E033NZ Introduction of Analgesics, Hypnotics, Sedatives into Peripheral Vein, Percutaneous Approach (ICD-10-PCS; 2024-04-03)
DX: R10.10 Upper abdominal pain, unspecified (principal); R11.0 Nausea
CPT/HCPCS: 36415; 71045-TC-FY; 80053; 83690; 84484; 85025; 93005; 93010; 96365; 96375; 99285-25; J0131